=== PATIENT | female | born 1975 | race Caucasian/White ===

== ENCOUNTER 2019-05-24 19:32 | Emergency (ER) | payer OTHER ==
[~2019-05-24] VITALS: Ht 172.7 cm; Wt 59.0 kg
[2019-05-25 03:20] VITALS: BP 118/76
== END 2019-05-25 03:20 | disposition home or self-care (01) ==
LOC: ER 19:32
DX: F10.920 Alcohol use, unspecified with intoxication, uncomplicated (principal); R32 Unspecified urinary incontinence; R47.81 Slurred speech

== ENCOUNTER 2019-12-10 16:34 | Emergency (ER) | payer OTHER ==
[~2019-12-10] VITALS: Ht 160 cm; Wt 59.0 kg
[2019-12-10 16:35] VITALS: BP 108/74
== END 2019-12-10 18:00 | disposition left against medical advice (07) ==
LOC: ER 16:34
DX: F10.10 Alcohol abuse, uncomplicated (principal); F17.210 Nicotine dependence, cigarettes, uncomplicated; Y90.9 Presence of alcohol in blood, level not specified